=== PATIENT | male | born 1995 | race Caucasian/White ===

== ENCOUNTER → 2018-09-21 | Outpatient (CLI) | payer OTHER ==
--- NOTE | 2018-09-21 23:04 | MR ---
EXAMINATION TYPE: MR angio head wo/neck wo/w con DATE OF EXAM: 09/21/2018 COMPARISON: None HISTORY: Family HX of Aneurysm, headaches, Gadavist 10ml TECHNIQUE: Time of flight images focusing on the [place] were performed without contrast.. 2-D and 3-D postprocessing imaging is performed. Pre and postcontrast administration images obtained through the neck following 10 cc Gadavist IV. Three-dimensional reconstructions performed. FINDINGS: [place] MRA: There is an atrophic A1 segment on the left. There is no evident aneu rysm, dissection, or embolus. IMPRESSION: No evident aneurysm. Neck MRA with and without contrast Common carotid arteries are patent. Vertebral arteries are codominant. Internal and external carotid arteries are patent, there is no evident stenosis of the proximal internal carotid arteries. No evide nt aneurysm or dissection. Left and right subclavian arteries are patent. Innominate artery is patent . Impression: unremarkable carotid arteries and vertebral arteries.
== END | disposition home or self-care (01) ==
LOC: RADMRIMAIN 19:25
PROVIDERS: ATTEND Family Medicine
DX: H53.9 Unspecified visual disturbance (principal); Z82.49 Family history of ischemic heart disease and other diseases of the circulatory system
CPT/HCPCS: 70544; 70549

== ENCOUNTER 2020-04-12 09:03 | Emergency (ER) | payer OTHER ==
[2020-04-12 09:16] VITALS: BP 131/77; PULSE 67; RESP 18; TEMP 98
[2020-04-12] MEDS ORDERED: ACET/COD 300 MG/30 MG STARTER PACK 6 TAB BTL PO STA (09:25)
[2020-04-12] MEDS ORDERED: KETOROLAC 60 MG/2 ML VIAL IM STA (09:25)
--- NOTE | 2020-04-12 09:29 | ED ---
Back Pain HPI - General Chief Complaint: Back Pain/Injury Stated Complaint: lower back injury-[facility] Time Seen by Provider: 04/12/20 09:20 Source: patient Limitations: no limitations - History of Present Illness Initial Comments: 24yo male presenting for low back pain x 1 day. Patient states that while twisting on a ladder at work and felt pain in the mid to lower back suddenly. p atient states he could barely get out of bed secondary to the pain this AM and presented to the ER for evaluation.Denies fall, direct trauma. Patient denies leg weakness, sensation deficits, loss of bowel/bladder control, inability to ambulate, erectile dysfunction. patient ambulatory on arrival. Denies fevers, IVDU, hx of cancer. Patient denies radiation of pain down the legs. Patient has no additional complaints. Upon arrival patient appears well there is no signs of acute distress. - Related Data Allergies Allergy/AdvReac Type Severity Reaction Status Date / Time albuterol Allergy Unknown Verified 04/12/20 09:17 Iodinated Contrast Media Allergy Unknown Verified 04/12/20 09:17 Review of Systems ROS Statement: Those systems with pertinent positive or pertinent negative responses have been documented in the HPI. ROS Other: All systems not noted in ROS Statement are negative. Past Medical History Past Medical History: No Reported History History of Any Multi-Drug Resistant Organisms: None Reported Past Surgical History: Orthopedic Surgery Additional Past Surgical History / Comment(s): right foot x2 and left hand Past Psychological History: No Psychological Hx Reported Smoking Status: Current every day smoker Past Alcohol Use History: Occasional Past Drug Use History: Marijuana General Exam - General Exam Comments Initial Comments: General: The patient is awake and alert, in no distress, and does not appear acutely ill. Eye: Pupils are equal, round and reactive to light, extra-ocular movements are intact. No nystagmus. There is normal conjunctiva bilaterally. No signs of icterus. Cardiovascular: There is a regular rate and rhythm. No murmur, rub or gallop is appreciated. Respiratory: Lungs are clear to auscultation, respirations are non-labored, breath sounds are equal. No wheezes, stridor, rales, or rhonchi. Musculoskeletal: Normal inspection of the cervical/thoracic and lumbar spine. Normal ROM, no tenderness of the LE b/l. (-) SLR b/l. Paravertebral tenderness lower thoracic, upper lumbar area. Strength 5/5 of the LE b/l. Sensation intact of the LE b/l including the saddle region. +2/5 DTR alix, patellar. DP pulses equal bilaterally 2+. Ambulates without difficulty, but grimaces from time to time. Neurological: A&O x 3. CN II-XII intact grossly, There are no obvious motor or sensory deficits. Coordination appears grossly intact. Speech is normal. Skin: Skin is warm and dry and no rashes or lesions are noted. Psychiatric: Cooperative, appropriate mood & affect, normal judgment. Limitations: no limitations Course Vital Signs 04/12/20 09:13 Temperature 98 F Pulse Rate 67 Respiratory 18 Rate Blood Pressure 131/77 O2 Sat by Pulse 99 Oximetry Medical Decision Making - Medical Decision Making 24-year-old male presenting today for chief complaint of low back pain. NO neurological deficits noted. Pt ambulatory. No history provided or exam findings concerning for cauda equina. Pt denies direct trauma or falls. Recommend PCP f/u with outpatient MRI for persistent symptoms. Patient agreeable and was discharged appearing well. Case discussed with Dr. Vargas pt discharged appearing well. Disposition Clinical Impression: Low back pain Disposition: HOME SELF-CARE Condition: Good Instructions (If sedation given, give patient instructions): Lumbar Disc Herniation (ED), Acute Low Back Pain (ED), Thoracic Disc Herniation (ED) Additional Instructions: Please use medication as discussed. Please follow-up with family doctor in the next 2 days, if symptoms persist > 5 days--please follow-up with orthopedic surgery as discussed. Please return to emergency room if the symptoms increase or worsen or for any other concerns-such as fever, weakness or sensation d eficits of leg, loss bowel/bladder control, urinary retention. Take lidocaine patch off in 24 hours Is patient prescribed a controlled substance at d/c from ED?: No Referrals: Karen Carbone MD [Primary Care Provider] - 1-2 days Jeremiah Sampson DO [Doctor of Osteopathic Medicine] - 1-2 days Time of Disposition: 09:26
[2020-04-12] MEDS ORDERED: LIDOCAINE 5% PATCH TOPICAL SCH (09:30)
== END 2020-04-12 09:45 | disposition home or self-care (01) ==
LOC: EC 09:03
DX: M54.5 Low back pain (principal); F17.200 Nicotine dependence, unspecified, uncomplicated; Z91.041 Radiographic dye allergy status; Z88.8 Allergy status to other drugs, medicaments and biological substances
CPT/HCPCS: 96372; 99283; J1885